=== PATIENT | male | born 2000 | race African-American/Black ===

== ENCOUNTER 2021-04-01 03:47 | Emergency (ER) | payer OTHER ==
[2021-04-01 04:21] VITALS: BP 119/78; PULSE 65; TEMP 98.1; BMI 34.7
== END 2021-04-01 07:00 | disposition home or self-care (01) ==
LOC: JER 03:47
DX: F41.9 Anxiety disorder, unspecified (principal); R00.2 Palpitations
CPT/HCPCS: 71046-TC-FY; 93005; 93010; 99284-25

== ENCOUNTER 2023-06-08 05:35 | Emergency (ER) | payer OTHER ==
[2023-06-08 06:06] VITALS: BP 119/74; PULSE 72; RESP 18; TEMP 98.2; BMI 25.8
[2023-06-08 08:00] LABS: BASO % 0.6 % (0-2.0); EOS % 1.3 % (0-4.5); HEMATOCRIT 44.2 % (35.4-49); HEMOGLOBIN 14.7 GM/dL (11.7-16.9); LYMPH % 30.6 % (8-40); MCH 28.3 pg (25.7-33.7); MCHC 33.2 g/dl (32.0-35.9); MEAN CELL VOLUME 85.4 fl (80-96); MEAN PLT VOLUME 8.5 fl (7.5-11.1); MONO % 6.9 % (3.8-10.2); NEUT % 60.6 % (42.8-82.8); PLATELET COUNT 267 10^3/uL (134-434); RBC 5.17 M/mm3 (4.00-5.60); RDW 14.3 % (11.9-15.9); WHITE BLOOD COUNT 8.2 K/mm3 (4.0-10.0)
[2023-06-08 08:16] LABS: POTASSIUM 4.2 mmol/L (3.5-5.1)
[2023-06-08 08:18] LABS: BLOOD UREA NITROGEN 17.3 mg/dL (7-18); CALCIUM 9.6 mg/dL (8.5-10.1)
[2023-06-08 08:19] LABS: ALBUMIN 4.2 g/dl (3.4-5.0)
[2023-06-08 08:21] LABS: CREATININE 0.9 mg/dL (0.55-1.3)
[2023-06-08 08:23] LABS: BILIRUBIN,TOTAL 0.5 mg/dL (0.2-1); TOT PROT 7.5 g/dl (6.4-8.2)
== END 2023-06-08 09:16 | disposition home or self-care (01) ==
LOC: JER 05:35
DX: R10.12 Left upper quadrant pain (principal); R25.1 Tremor, unspecified; R68.83 Chills (without fever); Z20.822 Contact with and (suspected) exposure to COVID-19
CPT/HCPCS: 0241U-QW; 36415; 71046-TC-FY; 80053; 83690; 83735; 85025; 93005; 93010; 99285-25